=== PATIENT | female | born 1955 | race African-American/Black ===

== ENCOUNTER 2019-02-18 08:24 | Inpatient (IN) ==
[2019-02-18] MEDS ORDERED: MORPHINE 4 MG/1 ML VIAL IV STA ×2 (09:10→12:05)
[2019-02-18] MEDS ORDERED: PROMETHAZINE 25 MG/1 ML VIAL IM STA (09:10)
[2019-02-18] MEDS ORDERED: PROMETHAZINE 25 MG/1 ML VIAL ONE (09:13)
[2019-02-18] MEDS ORDERED: MORPHINE 4 MG/1 ML VIAL ONE (09:13)
[2019-02-18 09:17] LABS: Basophils % 0.4 % (0.0-0.8); Eosinophils # 0.1 10*3/uL (0.0-0.87); Eosinophils % 1.3 % (0.00-10.9); Hematocrit 41.5 VOL% (35.7-47.0); Hemoglobin 13.7 GM/DL (12.0-16.0); Immature Granulocytes % 0.7 %; Immature Granulocytes Absolute 0.04 #; Lymphocytes # 1.1 10*3/uL (1.4-4.0); Lymphocytes % 19.9 % (21.3-54.2); Mean Corpuscular Volume 88.3 FL (87-102); Mean Platelet Volume 11.5 FL (9.6-12.0); Monocytes % 6.5 % (1.7-12.7); Neutrophils % 71.2 % (38.7-73.9); Platelet Count 213 T/CUMM (130-400); Red Cell Distribution Width 13.4 % (9.3-17.3); White Blood Count 5.6 T/CUMM (4-12)
[2019-02-18 09:38] LABS: Albumin 3.2 G/DL (3.4-5.0); Bilirubin,Total 0.6 MG/DL (0.2-1.0); Osmolality,Calculated 279.4 MOS/KG (273-304)
[2019-02-18] MEDS ORDERED: PIPERACILLIN/TAZOBACTAM 3,375 MG in SODIUM CHLORIDE 0.9% 100 ML IV STA (10:16)
[2019-02-18] MEDS ORDERED: PROMETHAZINE 25 MG/1 ML VIAL IV PRN (12:41)
[2019-02-18] MEDS ORDERED: ENOXAPARIN 40 MG/0.4 ML SYRINGE SUBCUT SCH (13:00)
[2019-02-18] MEDS ORDERED: SODIUM CHLORIDE 0.9% 1,000 ML IV SCH (13:00)
[2019-02-18 13:01] LABS: Risk Ratio 3.16
[2019-02-18] MEDS ORDERED: MAGNESIUM SULF RIDER 2 GM in PREMIX 1 EACH IV PRN (13:36)
[2019-02-18] MEDS ORDERED: MAGNESIUM SULF RIDER 4 GM in PREMIX 1 EACH IV PRN (13:36)
[2019-02-18] MEDS ORDERED: hydrALAZINE 20 MG/1 ML VIAL IV PRN (13:37)
[2019-02-18] MEDS: MORPHINE 4 MG/1 ML VIAL IV PRN ×2 (15:40→19:41)
[2019-02-18] MEDS: FAMOTIDINE 20 MG/2 ML VIAL IV SCH (15:48)
[2019-02-18] MEDS: POTASSIUM CHLORIDE INJ 40 MEQ in SODIUM CHLORIDE 0.45% 1,000 ML IV SCH ×2 (15:57→22:15)
[2019-02-18] MEDS: POTASSIUM CHLORIDE RIDER 10 MEQ in PREMIX 1 EACH IV PRN ×2 (15:57→18:05)
[2019-02-18 15:58] LABS: Apearance,Urine CLEAR (Clear); Bilirubin,Urine Negative (Negative); Blood, Urine Negative (Negative); Glucose,Urine (UA) Negative (Negative); Ketones,Urine Negative (Negative); Nitrite,Urine Negative (Negative); Protein,Urine Negative; RBC,Urine 1 /HPF (0-4); Urine Color Yellow (Yellow); Urine Specific Gravity 1.054 (1.001-1.035); WBC,Urine 1 /HPF (0-6)
[2019-02-18] MEDS: PIPERACILLIN/TAZOBACTAM 3,375 MG in SODIUM CHLORIDE 0.9% 100 ML IV SCH (19:58)
[2019-02-18] MEDS: HYDROmorphone 2 MG/1 ML VIAL IV PRN (20:47)
[2019-02-18] MEDS: PREGABALIN 100 MG CAPSULE PO SCH (21:23)
[2019-02-19] MEDS: FAMOTIDINE 20 MG/2 ML VIAL IV SCH ×2 (01:30→12:44)
[2019-02-19] MEDS: POTASSIUM CHLORIDE RIDER 10 MEQ in PREMIX 1 EACH IV PRN ×2 (01:38→03:14)
[2019-02-19] MEDS: PIPERACILLIN/TAZOBACTAM 3,375 MG in SODIUM CHLORIDE 0.9% 100 ML IV SCH ×3 (04:31→20:34)
[2019-02-19 04:32] LABS: Basophils % 0.2 % (0.0-0.8); Eosinophils % 0.1 % (0.00-10.9); Hematocrit 37.3 VOL% (35.7-47.0); Hemoglobin 12.3 GM/DL (12.0-16.0); Immature Granulocytes % 0.4 %; Immature Granulocytes Absolute 0.03 #; Lymphocytes # 0.7 10*3/uL (1.4-4.0); Lymphocytes % 9.2 % (21.3-54.2); Mean Platelet Volume 11.5 FL (9.6-12.0); Monocytes % 8.6 % (1.7-12.7); Neutrophils % 81.5 % (38.7-73.9); Platelet Count 202 T/CUMM (130-400); Red Blood Count 4.24 MC/CUMM (3.8-5.5); Red Cell Distribution Width 13.8 % (9.3-17.3)
[2019-02-19 04:45] LABS: Albumin 2.9 G/DL (3.4-5.0); Bilirubin,Direct 1.52 MG/DL (0.0-0.20); Bilirubin,Indirect 0.9 MG/DL (0.0-1.0); Bilirubin,Total 2.4 MG/DL (0.2-1.0); Calcium 8.8 MG/DL (8.5-10.1); Osmolality,Calculated 277.4 MOS/KG (273-304); Total Protein 7.4 G/DL (6.4-8.3)
[2019-02-19] MEDS: POTASSIUM CHLORIDE INJ 40 MEQ in SODIUM CHLORIDE 0.45% 1,000 ML IV SCH ×3 (07:37→22:37)
[2019-02-19] MEDS: PREGABALIN 100 MG CAPSULE PO SCH ×2 (12:45→20:34)
[2019-02-19] MEDS: HYDROmorphone 2 MG/1 ML VIAL IV PRN (13:05)
[2019-02-19] MEDS: ZOLPIDEM 5 MG TABLET PO SCH (21:19)
[2019-02-20] MEDS: FAMOTIDINE 20 MG/2 ML VIAL IV SCH ×2 (00:15→13:56)
[2019-02-20] MEDS: PIPERACILLIN/TAZOBACTAM 3,375 MG in SODIUM CHLORIDE 0.9% 100 ML IV SCH ×3 (03:15→18:29)
[2019-02-20 06:42] LABS: Basophils % 0.4 % (0.0-0.8); Eosinophils # 0.1 10*3/uL (0.0-0.87); Eosinophils % 2.4 % (0.00-10.9); Hematocrit 37.8 VOL% (35.7-47.0); Hemoglobin 12.4 GM/DL (12.0-16.0); Immature Granulocytes % 0.4 %; Immature Granulocytes Absolute 0.02 #; Lymphocytes # 0.8 10*3/uL (1.4-4.0); Mean Corpuscular HGB Conc 32.8 GM/DL (32-36); Mean Corpuscular Volume 87.7 FL (87-102); Mean Platelet Volume 11.3 FL (9.6-12.0); Monocytes % 10.8 % (1.7-12.7); Platelet Count 176 T/CUMM (130-400); Red Blood Count 4.31 MC/CUMM (3.8-5.5); Red Cell Distribution Width 13.6 % (9.3-17.3)
[2019-02-20 06:52] LABS: PT Patient Result 11.3 SECS (9.6-12.2)
[2019-02-20] MEDS ORDERED: INDOMETHACIN SUPP 50 MG SUPP RECTAL ONE ×2 (07:00→10:30)
[2019-02-20 07:15] LABS: Albumin 2.8 G/DL (3.4-5.0); Bilirubin,Direct 0.6 MG/DL (0.0-0.20); Bilirubin,Indirect 0.8 MG/DL (0.0-1.0); Bilirubin,Total 1.4 MG/DL (0.2-1.0); Calcium 9.1 MG/DL (8.5-10.1)
[2019-02-20 07:18] LABS: Osmolality,Calculated 275.4 MOS/KG (273-304); Total Protein 7.7 G/DL (6.4-8.3)
[2019-02-20] MEDS ORDERED: FAMOTIDINE 20 MG/2 ML VIAL IV ONE (07:19)
[2019-02-20] MEDS: POTASSIUM CHLORIDE INJ 40 MEQ in SODIUM CHLORIDE 0.45% 1,000 ML IV SCH ×2 (07:55→17:18)
[2019-02-20] MEDS ORDERED: fentaNYL 100 MCG/2 ML VIAL ONE (08:38)
[2019-02-20] MEDS ORDERED: MIDAZOLAM 2 MG/2 ML VIAL ONE ×2 (08:38→09:00)
[2019-02-20] MEDS: PREGABALIN 100 MG CAPSULE PO SCH ×2 (08:52→20:50)
[2019-02-20] MEDS ORDERED: PROPOFOL 1,000 MG/100 ML BOTTLE IV ONE (09:00)
[2019-02-20] MEDS ORDERED: ROCURONIUM 100 MG/10 ML VIAL IV ONE (09:00)
[2019-02-20] MEDS ORDERED: SUCCINYLCHOLINE 200 MG/10 ML VIAL ONE (09:00)
[2019-02-20] MEDS ORDERED: LIDOCAINE 2% 5 ML VIAL ONE (09:00)
[2019-02-20] MEDS ORDERED: METOCLOPRAMIDE 10 MG/2 ML VIAL ONE (10:00)
[2019-02-20] MEDS ORDERED: SCOPOLAMINE 1.5 MG PATCH TRANSDERM ONE (10:00)
[2019-02-20] MEDS ORDERED: SEVOFLURANE 1 UNIT/15 MINUTE INH ONE (11:17)
[2019-02-20] MEDS: LACTATED RINGERS 1,000 ML IV SCH (13:55)
[2019-02-20] MEDS: amLODIPine 5 MG TABLET PO SCH (15:58)
[2019-02-20] MEDS: ZOLPIDEM 5 MG TABLET PO SCH (20:50)
[2019-02-21] MEDS: FAMOTIDINE 20 MG/2 ML VIAL IV SCH ×2 (00:34→12:44)
[2019-02-21] MEDS: PIPERACILLIN/TAZOBACTAM 3,375 MG in SODIUM CHLORIDE 0.9% 100 ML IV SCH ×3 (03:39→18:04)
[2019-02-21 05:14] LABS: Basophils % 0.1 % (0.0-0.8); Hematocrit 37.2 VOL% (35.7-47.0); Hemoglobin 12.7 GM/DL (12.0-16.0); Immature Granulocytes % 0.6 %; Immature Granulocytes Absolute 0.04 #; Lymphocytes # 0.7 10*3/uL (1.4-4.0); Lymphocytes % 9.5 % (21.3-54.2); Mean Corpuscular HGB Conc 34.1 GM/DL (32-36); Mean Corpuscular Volume 85.1 FL (87-102); Mean Platelet Volume 12.1 FL (9.6-12.0); Neutrophils % 83.8 % (38.7-73.9); Platelet Count 214 T/CUMM (130-400); Red Blood Count 4.37 MC/CUMM (3.8-5.5); Red Cell Distribution Width 12.9 % (9.3-17.3)
[2019-02-21 05:26] LABS: Albumin 2.9 G/DL (3.4-5.0); Bilirubin,Direct 0.31 MG/DL (0.0-0.20); Bilirubin,Indirect 0.7 MG/DL (0.0-1.0); Calcium 9.2 MG/DL (8.5-10.1); Osmolality,Calculated 277.4 MOS/KG (273-304); Total Protein 8.1 G/DL (6.4-8.3)
[2019-02-21] MEDS: CITALOPRAM 40 MG TABLET PO SCH (08:15)
[2019-02-21] MEDS: PREGABALIN 100 MG CAPSULE PO SCH ×2 (08:15→21:14)
[2019-02-21] MEDS: URSODIOL 300 MG CAPSULE PO SCH ×2 (08:15→21:14)
[2019-02-21] MEDS: amLODIPine 5 MG TABLET PO SCH (08:16)
[2019-02-21] MEDS ORDERED: amLODIPine 5 MG TABLET PO SCH (09:31)
[2019-02-21] MEDS: LACTATED RINGERS 1,000 ML IV SCH (09:45)
[2019-02-21] MEDS ORDERED: PROMETHAZINE INJ 25 MG in SODIUM CHLORIDE 0.9% 50 ML IV PRN (18:21)
[2019-02-21] MEDS: ZOLPIDEM 5 MG TABLET PO SCH (21:15)
[2019-02-21] MEDS: DOCUSATE SODIUM 100 MG CAPSULE PO SCH (21:16)
[2019-02-22] MEDS: FAMOTIDINE 20 MG/2 ML VIAL IV SCH ×2 (00:23→12:54)
[2019-02-22] MEDS: PIPERACILLIN/TAZOBACTAM 3,375 MG in SODIUM CHLORIDE 0.9% 100 ML IV SCH ×3 (05:23→20:39)
[2019-02-22 06:08] LABS: Basophils % 0.7 % (0.0-0.8); Eosinophils # 0.1 10*3/uL (0.0-0.87); Eosinophils % 1.2 % (0.00-10.9); Hematocrit 38.8 VOL% (35.7-47.0); Hemoglobin 12.8 GM/DL (12.0-16.0); Immature Granulocytes % 0.5 %; Immature Granulocytes Absolute 0.03 #; Lymphocytes # 1.9 10*3/uL (1.4-4.0); Lymphocytes % 32.8 % (21.3-54.2); Mean Corpuscular Volume 86.6 FL (87-102); Mean Platelet Volume 11.2 FL (9.6-12.0); Monocytes % 7.3 % (1.7-12.7); Neutrophils % 57.5 % (38.7-73.9); Platelet Count 250 T/CUMM (130-400); Red Blood Count 4.48 MC/CUMM (3.8-5.5); Red Cell Distribution Width 13.5 % (9.3-17.3); White Blood Count 5.8 T/CUMM (4-12)
[2019-02-22 06:29] LABS: Albumin 2.8 G/DL (3.4-5.0); Bilirubin,Total 1.2 MG/DL (0.2-1.0); Calcium 9.1 MG/DL (8.5-10.1); Osmolality,Calculated 275.5 MOS/KG (273-304); Total Protein 7.5 G/DL (6.4-8.3)
[2019-02-22 06:33] LABS: Albumin 2.8 G/DL (3.4-5.0); Bilirubin,Direct 0.2 MG/DL (0.0-0.20); Bilirubin,Indirect 0.5 MG/DL (0.0-1.0); Bilirubin,Total 0.7 MG/DL (0.2-1.0); Total Protein 7.5 G/DL (6.4-8.3)
[2019-02-22] MEDS: CITALOPRAM 40 MG TABLET PO SCH (09:13)
[2019-02-22] MEDS: PREGABALIN 100 MG CAPSULE PO SCH ×2 (09:14→20:30)
[2019-02-22] MEDS: DOCUSATE SODIUM 100 MG CAPSULE PO SCH ×2 (09:14→20:30)
[2019-02-22] MEDS: amLODIPine 10 MG TABLET PO SCH (09:14)
[2019-02-22] MEDS: POTASSIUM CHLORIDE 20 MEQ TABLET PO SCH ×2 (09:14→20:30)
[2019-02-22] MEDS: URSODIOL 300 MG CAPSULE PO SCH ×2 (09:14→20:29)
[2019-02-22] MEDS: ZOLPIDEM 5 MG TABLET PO SCH (20:30)
[2019-02-23] MEDS: FAMOTIDINE 20 MG/2 ML VIAL IV SCH ×2 (00:26→15:03)
[2019-02-23] MEDS: PIPERACILLIN/TAZOBACTAM 3,375 MG in SODIUM CHLORIDE 0.9% 100 ML IV SCH ×3 (05:47→21:06)
[2019-02-23 05:57] LABS: Basophils # 0.1 10*3/uL (0.0-0.2); Eosinophils # 0.1 10*3/uL (0.0-0.87); Hematocrit 37.6 VOL% (35.7-47.0); Hemoglobin 12.3 GM/DL (12.0-16.0); Immature Granulocytes % 0.6 %; Immature Granulocytes Absolute 0.03 #; Lymphocytes # 2.2 10*3/uL (1.4-4.0); Lymphocytes % 44.1 % (21.3-54.2); Mean Corpuscular HGB Conc 32.7 GM/DL (32-36); Mean Corpuscular Volume 89.5 FL (87-102); Mean Platelet Volume 11.4 FL (9.6-12.0); Neutrophils % 45.3 % (38.7-73.9); Platelet Count 232 T/CUMM (130-400); Red Cell Distribution Width 13.7 % (9.3-17.3)
[2019-02-23 06:18] LABS: Albumin 2.6 G/DL (3.4-5.0); Bilirubin,Total 0.5 MG/DL (0.2-1.0); Calcium 8.8 MG/DL (8.5-10.1); Osmolality,Calculated 284.8 MOS/KG (273-304); Total Protein 7.1 G/DL (6.4-8.3)
[2019-02-23 06:21] LABS: Albumin 2.5 G/DL (3.4-5.0); Bilirubin,Direct 0.1 MG/DL (0.0-0.20); Bilirubin,Indirect 0.7 MG/DL (0.0-1.0); Bilirubin,Total 0.8 MG/DL (0.2-1.0); Total Protein 7.2 G/DL (6.4-8.3)
[2019-02-23] MEDS ORDERED: INDOMETHACIN SUPP 50 MG SUPP RECTAL ONE ×2 (07:38→08:34)
[2019-02-23] MEDS ORDERED: SCOPOLAMINE 1.5 MG PATCH TRANSDERM ONE (08:02)
[2019-02-23] MEDS ORDERED: MIDAZOLAM 2 MG/2 ML VIAL ONE (08:03)
[2019-02-23] MEDS ORDERED: fentaNYL 100 MCG/2 ML VIAL ONE (08:03)
[2019-02-23] MEDS ORDERED: METOCLOPRAMIDE 10 MG/2 ML VIAL ONE (09:52)
[2019-02-23] MEDS ORDERED: DEXAMETHASONE 4 MG/1 ML VIAL ONE (10:00)
[2019-02-23] MEDS ORDERED: ROCURONIUM 100 MG/10 ML VIAL IV ONE (10:00)
[2019-02-23] MEDS ORDERED: SEVOFLURANE 1 UNIT/15 MINUTE INH ONE (10:00)
[2019-02-23] MEDS ORDERED: SUCCINYLCHOLINE 200 MG/10 ML VIAL ONE (10:00)
[2019-02-23] MEDS ORDERED: hydrALAZINE 20 MG/1 ML VIAL ONE (10:00)
[2019-02-23] MEDS ORDERED: LIDOCAINE 100 MG/5 ML SYRINGE ONE (10:00)
[2019-02-23] MEDS ORDERED: NEOSTIGMINE 10 MG/10 ML VIAL ONE (10:00)
[2019-02-23] MEDS ORDERED: PROPOFOL 200 MG/20 ML VIAL IV ONE (10:00)
[2019-02-23] MEDS: POTASSIUM CHLORIDE 20 MEQ TABLET PO SCH ×2 (11:08→21:06)
[2019-02-23] MEDS: PREGABALIN 100 MG CAPSULE PO SCH ×2 (11:08→21:06)
[2019-02-23] MEDS: CITALOPRAM 40 MG TABLET PO SCH (11:08)
[2019-02-23] MEDS: DOCUSATE SODIUM 100 MG CAPSULE PO SCH ×2 (11:08→21:06)
[2019-02-23] MEDS: amLODIPine 10 MG TABLET PO SCH (11:08)
[2019-02-23] MEDS: HYDROmorphone 2 MG/1 ML VIAL IV PRN ×2 (14:13→21:07)
[2019-02-23] MEDS ORDERED: POLYVINYL ALCOHOL 1.4% OPH SOLN 15 ML BOTTLE LEFT EYE PRN (16:19)
[2019-02-23] MEDS: ZOLPIDEM 5 MG TABLET PO SCH (21:06)
[2019-02-24] MEDS: FAMOTIDINE 20 MG/2 ML VIAL IV SCH ×2 (01:12→13:08)
[2019-02-24] MEDS: PIPERACILLIN/TAZOBACTAM 3,375 MG in SODIUM CHLORIDE 0.9% 100 ML IV SCH ×2 (05:04→13:08)
[2019-02-24 05:28] LABS: Basophils % 0.2 % (0.0-0.8); Eosinophils % 0.3 % (0.00-10.9); Hematocrit 36.7 VOL% (35.7-47.0); Hemoglobin 12.1 GM/DL (12.0-16.0); Immature Granulocytes % 0.4 %; Immature Granulocytes Absolute 0.04 #; Lymphocytes # 1.8 10*3/uL (1.4-4.0); Lymphocytes % 18.1 % (21.3-54.2); Mean Corpuscular Volume 88.2 FL (87-102); Mean Platelet Volume 12.2 FL (9.6-12.0); Monocytes % 6.1 % (1.7-12.7); Neutrophils % 74.9 % (38.7-73.9); Platelet Count 186 T/CUMM (130-400); Red Blood Count 4.16 MC/CUMM (3.8-5.5); Red Cell Distribution Width 13.4 % (9.3-17.3); White Blood Count 9.9 T/CUMM (4-12)
[2019-02-24 05:58] LABS: Alanine Aminotransferase 32 U/L (13-56); Albumin 2.5 G/DL (3.4-5.0); Alkaline Phosphatase 163 U/L (45-117); Aspartate Amino Transferase 20 U/L (0-37); Bilirubin,Total < 0.39 MG/DL (0.2-1.0); Blood Urea Nitrogen 9 MG/DL (7-18); Calcium 8.5 MG/DL (8.5-10.1); Estimated Glom Filtration Rate 99 ML/MIN; Glucose 140 MG/DL (74-106); Osmolality,Calculated 279.4 MOS/KG (273-304); Total Protein 7.1 G/DL (6.4-8.3)
[2019-02-24 06:07] LABS: Alanine Aminotransferase 32 U/L (13-56); Albumin 2.5 G/DL (3.4-5.0); Alkaline Phosphatase 165 U/L (45-117); Aspartate Amino Transferase 22 U/L (0-37); Bilirubin,Direct < 0.050 MG/DL (0.0-0.20); Bilirubin,Indirect 0.3 MG/DL (0.0-1.0); Bilirubin,Total < 0.39 MG/DL (0.2-1.0); Total Protein 7.1 G/DL (6.4-8.3)
[2019-02-24 06:24] LABS: Anisocytosis 1+; Platelet Estimate Normal
[2019-02-24] MEDS: amLODIPine 10 MG TABLET PO SCH (09:01)
[2019-02-24] MEDS: POTASSIUM CHLORIDE 20 MEQ TABLET PO SCH (09:01)
[2019-02-24] MEDS: DOCUSATE SODIUM 100 MG CAPSULE PO SCH (09:01)
[2019-02-24] MEDS: PREGABALIN 100 MG CAPSULE PO SCH (09:01)
[2019-02-24] MEDS: CITALOPRAM 40 MG TABLET PO SCH (09:01)
[2019-02-24 12:41] VITALS: BP 123/68
== END 2019-02-24 13:08 | disposition home or self-care (01) | DRG 446 ==
LOC: N.ED 08:24 → N.EDINP 08:24 → N.3E 14:27
PROVIDERS: ADMIT Internal Medicine; ATTEND Internal Medicine

== ENCOUNTER 2020-08-28 17:33 | Inpatient (IN) ==
[2020-08-28] MEDS ORDERED: MORPHINE 4 MG/1 ML VIAL IV STA (18:39)
[2020-08-28 19:05] LABS: Basophils % 0.2 % (0.0-0.8); Eosinophils % 0.1 % (0.00-10.9); Hematocrit 40.8 VOL% (35.7-47.0); Hemoglobin 13.4 GM/DL (12.0-16.0); Immature Granulocytes % 0.8 %; Immature Granulocytes Absolute 0.14 #; Lymphocytes # 1.1 10*3/uL (1.4-4.0); Lymphocytes % 6.2 % (21.3-54.2); Mean Corpuscular HGB Conc 32.8 GM/DL (32-36); Mean Corpuscular Volume 84.5 FL (87-102); Mean Platelet Volume 10.8 FL (9.6-12.0); Monocytes % 4.4 % (1.7-12.7); Neutrophils % 88.3 % (38.7-73.9); Platelet Count 282 T/CUMM (130-400); Red Blood Count 4.83 MC/CUMM (3.8-5.5); Red Cell Distribution Width 14.6 % (9.3-17.3); White Blood Count 18.2 T/CUMM (4-12)
[2020-08-28 19:26] LABS: Bilirubin,Total 1.3 MG/DL (0.2-1.0); Calcium 8.9 MG/DL (8.5-10.1); Osmolality,Calculated 273.7 MOS/KG (273-304); Potassium 3.4 MMOL/L (3.5-5.1); Total Protein 7.9 G/DL (6.4-8.2)
[2020-08-28 19:30] LABS: Total Cells Counted 100
[2020-08-28 19:31] LABS: Eosinophils 1 % (0-10); Lymphocytes 7 % (20-55); Segmented Neutrophils 87 % (50-85)
[2020-08-28 19:32] LABS: Hypochromasia Slight; Microcytosis Slight; Platelet Estimate Increased
[2020-08-28 19:47] LABS: Bacteria,Urine Occasional /HPF (Few); Bilirubin,Urine Negative (Negative); Blood, Urine Negative (Negative); Glucose,Urine (UA) Negative (Negative); Ketones,Urine Negative (Negative); Mucus,Urine Occasional /LPF (Occasional); Nitrite,Urine Negative (Negative); Protein,Urine 30 MG/DL; RBC,Urine <1 /HPF (0-4); Squamous Epithelial Cell,Urine Occasional /HPF (0-10); Urine Appearance CLEAR (Clear); Urine Color Amber (Yellow); Urine Specific Gravity 1.021 (1.001-1.035)
[2020-08-28] MEDS ORDERED: cefTRIAXone 1,000 MG in SODIUM CHLORIDE 0.9% 100 ML IV STA (19:58)
[2020-08-28] MEDS ORDERED: hydrALAZINE 20 MG/1 ML VIAL IV PRN (20:37)
[2020-08-28] MEDS ORDERED: PROMETHAZINE 25 MG TABLET PO PRN (20:37)
[2020-08-28] MEDS ORDERED: NICOTINE 21 MG/24 HR PATCH TRANSDERM PRN (20:37)
[2020-08-28] MEDS ORDERED: GLUCAGON 1 MG VIAL IM PRN (20:37)
[2020-08-28] MEDS ORDERED: DEXTROSE 50% 25 GM/50 ML VIAL IV PRN (20:37)
[2020-08-28] MEDS ORDERED: diphenhydrAMINE CAP 25 MG CAPSULE PO PRN (20:37)
[2020-08-28] MEDS ORDERED: guaiFENesin/DM ER 600-30 MG TABLET PO PRN (20:37)
[2020-08-28] MEDS ORDERED: ACETAMINOPHEN 325 MG TABLET PO PRN (20:37)
[2020-08-28] MEDS: AZITHROMYCIN INJ 500 MG in SODIUM CHLORIDE 0.9% 250 ML IV SCH (21:45)
[2020-08-28] MEDS: ENOXAPARIN 40 MG/0.4 ML SYRINGE SUBCUT SCH (21:51)
[2020-08-28] MEDS ORDERED: ALBUTEROL/IPRATROPIUM 3 ML NEB RESP TX ONE (23:05)
[2020-08-28] MEDS: ALBUTEROL/IPRATROPIUM 3 ML NEB RESP TX SCH (23:10)
[2020-08-29] MEDS ORDERED: ZALEPLON 5 MG CAPSULE PO STA (00:04)
[2020-08-29] MEDS: ZALEPLON 5 MG CAPSULE PO PRN ×3 (01:35→23:40)
[2020-08-29 06:24] LABS: Basophils % 0.1 % (0.0-0.8); Eosinophils # 0.1 10*3/uL (0.0-0.87); Eosinophils % 0.7 % (0.00-10.9); Hemoglobin 11.8 GM/DL (12.0-16.0); Immature Granulocytes % 0.5 %; Immature Granulocytes Absolute 0.07 #; Lymphocytes # 2.2 10*3/uL (1.4-4.0); Lymphocytes % 14.8 % (21.3-54.2); Mean Corpuscular HGB Conc 32.8 GM/DL (32-36); Mean Corpuscular Volume 85.5 FL (87-102); Mean Platelet Volume 10.4 FL (9.6-12.0); Monocytes % 5.5 % (1.7-12.7); Neutrophils % 78.4 % (38.7-73.9); Platelet Count 258 T/CUMM (130-400); Red Blood Count 4.21 MC/CUMM (3.8-5.5); Red Cell Distribution Width 14.8 % (9.3-17.3); White Blood Count 14.8 T/CUMM (4-12)
[2020-08-29 06:41] LABS: Calcium 8.9 MG/DL (8.5-10.1); Osmolality,Calculated 271.8 MOS/KG (273-304); Potassium 3.4 MMOL/L (3.5-5.1)
[2020-08-29 06:42] LABS: Eosinophils 1 % (0-10); Hypochromasia 1+; Lymphocytes 13 % (20-55); Microcytosis 1+; Platelet Estimate Adequate; Segmented Neutrophils 81 % (50-85); Total Cells Counted 100
[2020-08-29] MEDS: ALBUTEROL/IPRATROPIUM 3 ML NEB RESP TX SCH ×3 (07:56→20:00)
[2020-08-29] MEDS: PANTOPRAZOLE 40 MG TABLET PO SCH (08:03)
[2020-08-29] MEDS: BISACODYL 5 MG TABLET PO SCH (08:04)
[2020-08-29] MEDS ORDERED: cefTRIAXone 1,000 MG in SODIUM CHLORIDE 0.9% 100 ML IV SCH (09:00)
[2020-08-29] MEDS ORDERED: KETOROLAC 30 MG/1 ML VIAL IM ONE (09:17)
[2020-08-29] MEDS ORDERED: cefTRIAXone 1,000 MG in SODIUM CHLORIDE 0.9% 100 ML IV ONE (11:14)
[2020-08-29] MEDS: MORPHINE 4 MG/1 ML VIAL IV PRN ×2 (12:11→20:48)
[2020-08-29] MEDS: ENOXAPARIN 40 MG/0.4 ML SYRINGE SUBCUT SCH (20:55)
[2020-08-29] MEDS: AZITHROMYCIN INJ 500 MG in SODIUM CHLORIDE 0.9% 250 ML IV SCH (20:56)
[2020-08-30] MEDS: ALBUTEROL/IPRATROPIUM 3 ML NEB RESP TX SCH ×4 (00:40→19:57)
[2020-08-30 06:01] LABS: Basophils % 0.3 % (0.0-0.8); Eosinophils # 0.1 10*3/uL (0.0-0.87); Eosinophils % 1.7 % (0.00-10.9); Hematocrit 34.1 VOL% (35.7-47.0); Hemoglobin 11.4 GM/DL (12.0-16.0); Immature Granulocytes Absolute 0.07 #; Lymphocytes # 1.3 10*3/uL (1.4-4.0); Mean Corpuscular HGB Conc 33.4 GM/DL (32-36); Mean Platelet Volume 10.9 FL (9.6-12.0); Platelet Count 227 T/CUMM (130-400); Red Blood Count 4.06 MC/CUMM (3.8-5.5); Red Cell Distribution Width 14.7 % (9.3-17.3)
[2020-08-30 06:28] LABS: Albumin 2.7 G/DL (3.4-5.0); Bilirubin,Total 0.7 MG/DL (0.2-1.0); Calcium 8.9 MG/DL (8.5-10.1); Osmolality,Calculated 281.1 MOS/KG (273-304); Potassium 2.9 MMOL/L (3.5-5.1); Total Protein 7.1 G/DL (6.4-8.2)
[2020-08-30 06:34] LABS: Hypochromasia 1+
[2020-08-30 06:35] LABS: Microcytosis 1+; Platelet Estimate Normal
[2020-08-30] MEDS: POTASSIUM CHLORIDE 20 MEQ TABLET PO PRN ×3 (07:08→10:45)
[2020-08-30] MEDS: PANTOPRAZOLE 40 MG TABLET PO SCH (08:55)
[2020-08-30] MEDS: BISACODYL 5 MG TABLET PO SCH (08:55)
[2020-08-30] MEDS: MORPHINE 4 MG/1 ML VIAL IV PRN ×2 (09:02→20:37)
[2020-08-30] MEDS ORDERED: cefTRIAXone 2,000 MG in SODIUM CHLORIDE 0.9% 100 ML IV SCH ×2 (11:13→12:30)
[2020-08-30] MEDS: AZITHROMYCIN INJ 500 MG in SODIUM CHLORIDE 0.9% 250 ML IV SCH (20:33)
[2020-08-30] MEDS: ENOXAPARIN 40 MG/0.4 ML SYRINGE SUBCUT SCH (20:33)
[2020-08-30] MEDS: ZALEPLON 5 MG CAPSULE PO PRN ×2 (20:33→22:23)
[2020-08-31] MEDS: ALBUTEROL/IPRATROPIUM 3 ML NEB RESP TX SCH ×3 (00:35→13:06)
[2020-08-31] MEDS: MORPHINE 4 MG/1 ML VIAL IV PRN ×3 (00:59→13:37)
[2020-08-31] MEDS: AZITHROMYCIN INJ 500 MG in SODIUM CHLORIDE 0.9% 250 ML IV SCH (01:06)
[2020-08-31 05:28] LABS: Basophils % 0.5 % (0.0-0.8); Eosinophils # 0.1 10*3/uL (0.0-0.87); Eosinophils % 2.2 % (0.00-10.9); Hematocrit 37.7 VOL% (35.7-47.0); Hemoglobin 12.3 GM/DL (12.0-16.0); Immature Granulocytes % 0.8 %; Immature Granulocytes Absolute 0.05 #; Lymphocytes # 1.7 10*3/uL (1.4-4.0); Lymphocytes % 28.9 % (21.3-54.2); Mean Corpuscular HGB Conc 32.6 GM/DL (32-36); Mean Corpuscular Volume 84.9 FL (87-102); Monocytes % 7.8 % (1.7-12.7); Neutrophils % 59.8 % (38.7-73.9); Platelet Count 277 T/CUMM (130-400); Red Blood Count 4.44 MC/CUMM (3.8-5.5); Red Cell Distribution Width 14.8 % (9.3-17.3); White Blood Count 5.9 T/CUMM (4-12)
[2020-08-31 05:51] LABS: Calcium 9.5 MG/DL (8.5-10.1); Osmolality,Calculated 275.4 MOS/KG (273-304); Potassium 3.1 MMOL/L (3.5-5.1)
[2020-08-31] MEDS: POTASSIUM CHLORIDE 20 MEQ TABLET PO SCH ×2 (08:51→13:37)
[2020-08-31] MEDS: PANTOPRAZOLE 40 MG TABLET PO SCH (08:51)
[2020-08-31] MEDS: BISACODYL 5 MG TABLET PO SCH (08:51)
[2020-08-31 12:35] VITALS: BP 114/61
== END 2020-08-31 14:21 | disposition home or self-care (01) | DRG 195 ==
LOC: EDUNIT# → EDBD → N.ED 17:33 → N.EDINP 20:37 → N.5E 08-29 00:53
PROVIDERS: ADMIT Emergency Medicine; ATTEND Emergency Medicine

== ENCOUNTER 2022-04-15 17:01 | Observation (INO) ==
[2022-04-15] MEDS ORDERED: METOCLOPRAMIDE 10 MG/2 ML VIAL IV STA (18:16)
[2022-04-15] MEDS ORDERED: SODIUM CHLORIDE 0.9% 1,000 ML IV STA (18:16)
[2022-04-15 18:39] LABS: Basophils % 0.2 % (0.0-0.8); Eosinophils % 0.3 % (0.00-10.9); Hematocrit 39.3 VOL% (35.7-47.0); Hemoglobin 13.2 GM/DL (12.0-16.0); Immature Granulocytes % 0.6 %; Immature Granulocytes Absolute 0.07 #; Lymphocytes # 0.7 10*3/uL (1.4-4.0); Lymphocytes % 5.9 % (21.3-54.2); Mean Corpuscular HGB Conc 33.6 GM/DL (32-36); Mean Corpuscular Volume 90.1 FL (87-102); Mean Platelet Volume 11.8 FL (9.6-12.0); Monocytes # 0.3 10*3/uL (0.11-0.8); Monocytes % 2.9 % (1.7-12.7); Neutrophils % 90.1 % (38.7-73.9); Platelet Count 47 T/CUMM (130-400); Red Blood Count 4.36 MC/CUMM (3.8-5.5); Red Cell Distribution Width 12.7 % (9.3-17.3); White Blood Count 11.6 T/CUMM (4-12)
[2022-04-15 19:36] LABS: Alanine Aminotransferase 34 U/L (13-56); Albumin 3.2 G/DL (3.4-5.0); Alkaline Phosphatase 118 U/L (45-117); Amylase 39 U/L (25-115); Aspartate Amino Transferase 34 U/L (0-37); Blood Urea Nitrogen 9 MG/DL (7-18); Calcium 9.2 MG/DL (8.5-10.1); Carbon Dioxide 22 MMOL/L (21-32); Chloride 106 MMOL/L (98-107); Glucose 107 MG/DL (74-106); Osmolality,Calculated 273.7 MOS/KG (273-304); Potassium 3.8 MMOL/L (3.5-5.1); Sodium 138 MMOL/L (136-145); Total Protein 7.6 G/DL (6.4-8.2)
[2022-04-15 19:51] LABS: Sedimentation Rate-Westergren 13 MM/HR (0-30)
[2022-04-15] MEDS ORDERED: LEVOFLOXACIN INJ 750 MG/150 ML PREMIX IV STA (20:10)
[2022-04-15 20:19] LABS: Band Neutrophils 4 % (0-10); Lymphocytes 3 % (20-55); Total Cells Counted 100
[2022-04-15 20:20] LABS: Platelet Estimate Decreased
[2022-04-15] MEDS ORDERED: ACETAMINOPHEN 325 MG TABLET PO PRN (20:29)
[2022-04-15] MEDS ORDERED: hydrALAZINE 20 MG/1 ML VIAL IV PRN (20:29)
[2022-04-15] MEDS ORDERED: ALUMINUM/MAGNES/SIMETH MAX STR 30 ML UDCUP PO PRN (20:29)
[2022-04-15 21:31] LABS: Mucus,Urine Occasional /LPF (Occasional); RBC,Urine 2 /HPF (0-4); Squamous Epithelial Cell,Urine Occasional /HPF (0-10)
[2022-04-15 21:32] LABS: Bilirubin,Urine Negative (Negative); Blood, Urine Negative (Negative); Glucose,Urine (UA) Negative (Negative); Ketones,Urine Negative (Negative); Nitrite,Urine Negative (Negative); Protein,Urine Negative (Negative); Urine Appearance Clear (Clear); Urine Color Yellow (Yellow); Urine Specific Gravity 1.015 (1.001-1.035); Urine pH 7.5 (4.5-8.0)
[2022-04-15 21:33] LABS: Urine Urobilinogen 0.2 eU/dL (<2.0)
[2022-04-15] MEDS: ZALEPLON 5 MG CAPSULE PO PRN (23:46)
[2022-04-15] MEDS: DOCUSATE SODIUM 100 MG CAPSULE PO SCH (23:47)
[2022-04-16] MEDS: ALBUTEROL 2.5 MG/3 ML NEB RESP TX SCH ×4 (00:26→19:45)
[2022-04-16 05:13] LABS: Basophils % 0.2 % (0.0-0.8); Eosinophils # 0.1 10*3/uL (0.0-0.87); Eosinophils % 0.9 % (0.00-10.9); Hematocrit 35.8 VOL% (35.7-47.0); Immature Granulocytes % 0.5 %; Immature Granulocytes Absolute 0.05 #; Lymphocytes # 1.4 10*3/uL (1.4-4.0); Lymphocytes % 12.9 % (21.3-54.2); Mean Corpuscular HGB Conc 33.5 GM/DL (32-36); Mean Corpuscular Volume 92.3 FL (87-102); Monocytes # 0.6 10*3/uL (0.11-0.8); Neutrophils % 80.5 % (38.7-73.9); Platelet Count 209 T/CUMM (130-400); Red Blood Count 3.88 MC/CUMM (3.8-5.5); Red Cell Distribution Width 13.1 % (9.3-17.3); White Blood Count 11.1 T/CUMM (4-12)
[2022-04-16 05:46] LABS: Calcium 9.4 MG/DL (8.5-10.1); Osmolality,Calculated 279.3 MOS/KG (273-304); Potassium 3.7 MMOL/L (3.5-5.1)
[2022-04-16 06:20] LABS: Anisocytosis 1+; Band Neutrophils 8 % (0-10); Eosinophils 1 % (0-10); Lymphocytes 10 % (20-55); Platelet Estimate Normal; Total Cells Counted 100
[2022-04-16] MEDS: DOCUSATE SODIUM 100 MG CAPSULE PO SCH ×2 (09:28→20:10)
[2022-04-16] MEDS: PANTOPRAZOLE 40 MG TABLET PO SCH (09:28)
[2022-04-16] MEDS: SODIUM CHLORIDE 0.9% 1,000 ML IV SCH (16:43)
[2022-04-16] MEDS: ZALEPLON 5 MG CAPSULE PO PRN (20:09)
[2022-04-16] MEDS ORDERED: LEVOFLOXACIN INJ 750 MG/150 ML PREMIX IV SCH (21:00)
[2022-04-16] MEDS ORDERED: MELATONIN 3 MG TABLET PO PRN (23:49)
[2022-04-17] MEDS: ALBUTEROL 2.5 MG/3 ML NEB RESP TX SCH ×2 (00:45→06:47)
[2022-04-17 05:52] LABS: Basophils % 0.3 % (0.0-0.8); Eosinophils # 0.1 10*3/uL (0.0-0.87); Eosinophils % 1.6 % (0.00-10.9); Hematocrit 37.4 VOL% (35.7-47.0); Hemoglobin 12.6 GM/DL (12.0-16.0); Immature Granulocytes % 0.3 %; Immature Granulocytes Absolute 0.02 #; Lymphocytes # 1.2 10*3/uL (1.4-4.0); Lymphocytes % 17.1 % (21.3-54.2); Mean Corpuscular HGB Conc 33.7 GM/DL (32-36); Mean Corpuscular Volume 90.8 FL (87-102); Mean Platelet Volume 11.9 FL (9.6-12.0); Monocytes # 0.5 10*3/uL (0.11-0.8); Monocytes % 6.6 % (1.7-12.7); Neutrophils % 74.1 % (38.7-73.9); Platelet Count 234 T/CUMM (130-400); Red Blood Count 4.12 MC/CUMM (3.8-5.5); Red Cell Distribution Width 13.2 % (9.3-17.3); White Blood Count 6.9 T/CUMM (4-12)
[2022-04-17 06:20] LABS: Calcium 9.5 MG/DL (8.5-10.1); Osmolality,Calculated 279.3 MOS/KG (273-304); Potassium 3.8 MMOL/L (3.5-5.1)
[2022-04-17] MEDS: PANTOPRAZOLE 40 MG TABLET PO SCH (08:18)
[2022-04-17] MEDS: DOCUSATE SODIUM 100 MG CAPSULE PO SCH (08:18)
[2022-04-17] MEDS: SODIUM CHLORIDE 0.9% 1,000 ML IV SCH (08:19)
[2022-04-17 11:58] VITALS: BP 125/82
[2022-04-18] MEDS ORDERED: LEVOFLOXACIN 750 MG TABLET PO SCH (09:00)
== END 2022-04-17 12:25 | disposition home or self-care (01) ==
LOC: N.EDINP 17:01 → N.ED 17:01 → N.2W 21:40
PROVIDERS: ADMIT Internal Medicine; ATTEND Internal Medicine